=== PATIENT | female | born 1945 | race Caucasian/White ===

== ENCOUNTER 2018-08-04 02:57 | Observation (INO) | payer MEDICARE ==
[2018-08-04] MEDS ORDERED: Metoprolol Tartrate 5 MG/5 ML VIAL ONE (03:20)
[2018-08-04 03:53] LABS: Troponin I Less than 0.010 ng/mL (< 0.028)
[2018-08-04 04:20] VITALS: BMI 22.5
[2018-08-04] MEDS ORDERED: Ondansetron PF 4 MG/2 ML Vial IVP PRN (04:42)
[2018-08-04] MEDS ORDERED: Ondansetron ODT 4 MG TAB SL PRN (04:42)
[2018-08-04] MEDS ORDERED: Acetaminophen 325 MG TAB PO PRN ×2 (04:42→10:09)
[2018-08-04 06:39] LABS: Troponin I Less than 0.010 ng/mL (< 0.028)
[2018-08-04] MEDS ORDERED: Aspirin 325 mg Enteric Coated Tablet PO SCH (09:00)
[2018-08-04 09:16] LABS: Troponin I Less than 0.010 ng/mL (< 0.028)
[2018-08-04] MEDS ORDERED: Guaifenesin DM 100-10/5 ML UDCUP PO PRN (10:09)
[2018-08-04] MEDS ORDERED: Nitroglycerin 0.4 MG TAB (25 Tab Bottle) PO PRN (10:09)
[2018-08-04 10:46] LABS: Cardiac Risk 2.4 (Less than 4.5)
[2018-08-04 11:25] VITALS: TEMP 98.2
--- NOTE | 2018-08-04 11:26 | HP ---
REASON FOR ADMISSION: Chest pain. HISTORY OF PRESENT ILLNESS: The patient gives history of having pain between her shoulder blades around 10:30 p.m. yesterday. After a while, this pain radiated to her anterior chest wall. She felt like her skin was getting tight and hot. The patient was also sweating in her bilateral armpits. She checked her blood pressure, it was 150/100. After 30 minutes or so, this completely resolved. As this concerned her, she and her finally made it to the emergency room. Currently, she has no complaints of chest pain, palpitations, PND or orthopnea. The patient states she has had prior coronary angiogram done more than 10 years back. Per patient, this was done here which I cannot access at present. She did not have any flow limiting disease per patient. PAST MEDICAL AND SURGICAL HISTORY: Hypertension, dyslipidemia, bladder suspension surgery, cholecystectomy, hysterectomy, right rotator cuff surgery, prior angiogram done more than 10 years ago which was normal per patient with no intervention done. CURRENT MEDICATIONS: Norvasc 5 mg daily, simvastatin 5 mg daily, omeprazole 20 mg daily, aspirin 81 mg daily, Glucosamine 1500 mg p.o. daily. ALLERGIES: No known drug allergies. PERSONAL HISTORY: Does not abuse alcohol or drugs. No history of smoking. FAMILY HISTORY: Mother at the age of 89 years. She has had history of coronary artery disease with prior CABG and diabetes. Father at the age of 67 years from lung cancer and was a smoker, he also had coronary artery disease. CODE STATUS: FULL. Power of employee benefits attorney is her . REVIEW OF SYSTEMS: The following complete review of systems was negative, unless otherwise mentioned in the HPI or below: Constitutional: Weight loss or gain, ability to conduct usual activities. Skin: Rash, itching. Eyes: Double vision, pain. ENT/Mouth: Nose bleeding, neck stiffness, pain, tenderness. Cardiovascular: Palpitations, dyspnea on exertion, orthopnea. Respiratory: Shortness of breath, wheezing, cough, hemoptysis, fever or night sweats. Gastrointestinal: Poor appetite, abdominal pain, heartburn, nausea, vomiting, constipation, or diarrhea. Genitourinary: Urgency, frequency, dysuria, nocturia. Musculoskeletal: Pain, swelling. Neurologic/Psychiatric: Anxiety, depression. Allergy/Immunologic: Skin rash, bleeding tendency. PHYSICAL EXAMINATION: GENERAL: The patient is a 72-year-old female who is currently not in any acute distress. VITAL SIGNS: Blood pressure 140/96, pulse 70 per minute, respiratory rate 16 per minute, temperature 97.9 degrees Fahrenheit, saturating 94% on room air. NECK: Supple, no elevated JVD. HEENT: Extraocular muscles intact. Pupils reacting to light. Oral cavity mucous membranes are moist. No exudates or congestion. CARDIOVASCULAR: S1, S2 heard. Regular rhythm. RESPIRATORY: Air entry 2+ bilateral. No rales or rhonchi. ABDOMEN: Soft, bowel sounds heard. No tenderness, rigidity or guarding. EXTREMITIES: No peripheral edema or calf tenderness. VASCULAR SYSTEM: Peripheral pulses 1+ bilateral, no ischemic ulcerations or gangrene. CENTRAL NERVOUS SYSTEM: No gross focal deficits noted. Patient is alert, awake , oriented well. PSYCHIATRIC: The patient's mood is euthymic. No hallucinations or delusions. LABORATORY AND X-RAY FINDINGS: EKG done shows sinus tachycardia at 112 beats per minute. No significant ST-T wave changes. White count of 9, H and H 15 and 44, platelet count 249, MCV is 92 with 50% neutrophils. Electrolytes stable. BUN 10, creatinine 0.6, glucose 122, total bilirubin 1.9 which is chronically elevated. Albumin is 4.6. Total cholesterol 179, LDL 89, triglycerides 74, HDL is 75. TSH 4.0. Chest x-ray done shows no acute cardiopulmonary process. There is atherosclerosis of aorta seen. CLINICAL IMPRESSION AND PLAN: The patient will be under observation on telemetry for atypical chest pain to rule out acute coronary syndrome. The patient has had prior coronary angiogram done more than 10 years ago which apparently was within normal limits with no intervention done then. On her x- ray, she has findings of atherosclerosis in the aorta. Three sets of cardiac enzymes are negative so far. We will obtain a nuclear stress test and see if she has any reversible ischemia. We will also continue her on full dose aspirin and her home dose of Norvasc and Zocor. If patient's stress test is normal, she likely be discharged home and will need a cervical spine MRI as outpatient via her primary care physician. Addendum: her stress test is normal with no sign of reversible ischemia and good ejection fraction. She is asymptomatic and will be discharged home. Please note this is a same day admit discharge under observation status. SAMMIE
[2018-08-04] MEDS ORDERED: ADENOSINE 60 MG/20 ML VIAL ONE (12:52)
[2018-08-04 16:11] VITALS: BP 110/69
--- NOTE | 2018-08-04 16:43 | NM ---
CARDIAC SPECT: HISTORY: A 72-year-old female with chest pain, hypertension, and dyslipidemia. TECHNIQUE: A myocardial perfusion scan was performed using the single-isotope 1-day protocol with Technetium 99m sestamibi. Nine mCi were injected intravenously for the rest exam followed by 31 mCi for the stress study. Pharmacologic stress with adenosine is monitored and interpreted by Karen Ayala PA-C. FINDINGS: Homogeneous tracer distribution is seen in the myocardial segments on stress and rest images without fixed or reversible defects. GATED SPECT LVEF: 89%. WALL MOTION EXAM: Normal. IMPRESSION: Normal myocardial perfusion scan. POS: TYRON
[2018-08-04] MEDS ORDERED: Famotidine 20 MG TAB PO SCH (21:00)
[2018-08-04] MEDS ORDERED: Simvastatin 5 MG TAB PO SCH (21:00)
[2018-08-05] MEDS ORDERED: Aspirin 325 MG TAB PO SCH (09:00)
[2018-08-05] MEDS ORDERED: Amlodipine 5 MG TAB PO SCH (09:00)
== END 2018-08-04 16:33 | disposition home or self-care (01) ==
LOC: ERS 02:57 → 2NO 03:57
PROVIDERS: ADMIT Internal Medicine; ATTEND Internal Medicine
DX: R07.89 Other chest pain (principal); I10 Essential (primary) hypertension; E78.5 Hyperlipidemia, unspecified; I70.0 Atherosclerosis of aorta; Z79.82 Long term (current) use of aspirin; Z79.899 Other long term (current) drug therapy; Z98.890 Other specified postprocedural states
CPT/HCPCS: 78452; 80061; 84484 ×2; 93005; 93017; 94760; 96374; 99285; A9500; G0378 ×2; 36415; J0153

== ENCOUNTER 2018-08-09 22:22 | Emergency (ER) | payer MEDICARE ==
[2018-08-09 22:45] LABS: #Eosinphils 0.1 thou/uL (0.0-0.7); #Lymphocytes 2.8 thou/uL (1.20-3.40); %Basophils 0.4 % (0.0-1.0); %Eosinophils 1.1 % (0.0-10.0); %Lymphocytes 25.3 % (21.0-51.0); %Monocytes 9.1 % (0.0-10.0); %Neutrophils 64.2 % (42.0-75.0); Hemoglobin 14.5 g/dL (12.0-16.0); Mean Corpuscular HGB CONC 33.9 g/dL (32.0-36.0); Mean Corpuscular Hemoglobin 32.1 pg (27.0-31.0); Mean Corpuscular Volume 94.8 fL (78.0-98.0); Mean Platelet Volume 8.1 fL (7.4-10.4); Platelet Count 258 thou/uL (130-400); RBC Distribution Width 11.7 % (11.5-14.5); Red Blood Cell (RBC) Count 4.53 mill/uL (4.20-5.40); White Blood Cell (WBC) Count 10.9 thou/uL (4.8-10.8)
[2018-08-09 23:06] LABS: ALT (SGPT) 12 U/L (8-55); AST (SGOT) 21 U/L (5-34); Albumin 4.5 g/dL (3.4-4.8); Alkaline Phosphatase 134 U/L (40-150); Anion Gap 13 mmol/L (10-20); BUN (Urea Nitrogen) 10 mg/dL (9.8-20.1); Bilirubin, Total 1.9 mg/dL (0.2-1.2); CK (CPK) 52 U/L (29-168); Calc. Creatinine Clearance 0 mL/min (70-130); Calcium 9.8 mg/dL (7.8-10.44); Carbon Dioxide 28 mmol/L (23-31); Chloride 105 mmol/L (98-107); Estimated GFR-MDRD 79; Globulin 3.1 g/dL (2.4-3.5); Glucose 137 mg/dL (80-115); Potassium 3.7 mmol/L (3.5-5.1); Protein, Total 7.6 g/dL (6.0-8.3); Sodium 142 mmol/L (136-145)
[2018-08-09 23:10] LABS: CKMB 1.2 ng/mL (0-6.6); Troponin I Less than 0.010 ng/mL (< 0.028)
[2018-08-10] MEDS ORDERED: clonazePAM 1 MG TAB ONE (00:08)
[2018-08-10] MEDS ORDERED: Lorazepam 1 MG TAB PO SCH (00:15)
[2018-08-10] MEDS ORDERED: Milk Of Magnesia 30 ML UDCUP ONE (00:53)
[2018-08-10] MEDS ORDERED: Lidocaine Viscous Sol 2% 15 ml UD Cup ONE (00:53)
[2018-08-10 01:13] LABS: Bilirubin Negative (Negative); Blood, Urine Negative (Negative); Clarity CLEAR (Clear); Glucose, Urine (Dipstick) Negative (Negative); Leukocyte Trace (Negative); Nitrite Negative (Negative); Protein, Urine (Dipstick) Negative (Neg-Trace); Specific Gravity, Urine 1.004 (1.002-1.036); pH, Urine 7.5 (5.0-9.0)
[2018-08-10 01:15] LABS: Bacteria/HPF None Seen HPF (None Seen); Hyaline Casts/LPF 0-3 HYALINE CAST LPF (0-3 Hyaline); Pathc Cast-AUWi Flag 0.14 (0-2.49); RBC/HPF 0-3 HPF (0-3); Squamous Epithelial None Seen HPF (0-3); WBC/HPF 0-3 HPF (0-3)
--- NOTE | 2018-08-10 07:53 | RAD ---
CHEST 1 VIEW: HISTORY: Dyspnea. Tachycardia. COMPARISON: 11/08/2014. FINDINGS: Cardiac silhouette is magnified by projection. Pulmonary vasculature unremarkable. Mediastinum is m idline. Projecting over the right base is an oval 1.3 cm soft tissue density nodule. Scattered calcified granulomata are consistent with healed granulomatous disease. No evidence of pne umothorax. IMPRESSION: Right basilar nodular density on this frontal portable view. Please consider upright PA and lateral views of the chest for further evaluation. CODE T POS: TYRON
== END 2018-08-10 01:33 | disposition home or self-care (01) ==
LOC: ERS 22:22
DX: R00.2 Palpitations (principal); N95.1 Menopausal and female climacteric states; I10 Essential (primary) hypertension; E78.00 Pure hypercholesterolemia, unspecified; Z79.82 Long term (current) use of aspirin; Z79.899 Other long term (current) drug therapy
CPT/HCPCS: 36415; 71045; 80053; 81003; 81015; 82553; 83735; 84443; 84484; 85025; 85379; 93005